=== PATIENT | female | born 1955 | race Two or more races ===

== ENCOUNTER 2020-02-25 11:30 | Emergency (ER) | payer MEDICAID, OTHER ==
[~2020-02-25] VITALS: Ht 175.3 cm; Wt 104.3 kg
[2020-02-25 13:51] VITALS: BP 121/65
== END 2020-02-25 13:51 | disposition home or self-care (01) ==
LOC: ER 11:30 → EDBD 11:30 → ER 13:51
DX: F15.10 Other stimulant abuse, uncomplicated (principal); F41.9 Anxiety disorder, unspecified; M79.605 Pain in left leg; M79.604 Pain in right leg